=== PATIENT | female | born 1970 | race Two or more races ===

== ENCOUNTER 2022-04-13 17:30 | Emergency (ER) | payer BC, OTHER ==
[~2022-04-13] VITALS: Ht 167.6 cm; Wt 86.2 kg
[2022-04-13 19:49] LABS: Eosinophils # (auto) 0.1 10 ^3/uL (0-0.8); Neutrophils # (auto) 2.7 10 ^3/uL (1.6-8.6)
[2022-04-13 19:51] LABS: Albumin 3.4 g/dL (3.4-5.0); Basophils # (auto) 0 10 ^3/uL (0-0.2); Basophils % (auto) 0.8 % (0.0-2.0); Calcium 9.7 mg/dL (8.5-10.1); Hematocrit 30.4 % (36.0-46.0); Lymphocytes # (auto) 1.4 10 ^3/uL (0.4-5.4); Lymphocytes % (auto) 28.7 % (10.0-50.0); Mean Corpuscular Hemoglobin 20.2 pg (28.0-32.0); Mean Corpuscular Hgb Conc. 29.6 g/dL (32.0-36.0); Mean Corpuscular Volume 68.2 fL (80.0-100.0); Monocytes # (auto) 0.6 10 ^3/uL (0-1.3); Neutrophils % (auto) 56.5 % (37.0-80.0); Nucleated Red Blood Cells % 0.3 %; Potassium 3.7 mmol/L (3.5-5.1); Red Blood Cells 4.45 10^6/uL (4.0-5.20); White Blood Cell 4.8 10^3/uL (4.4-10.8)
[2022-04-13 19:56] LABS: Bilirubin, Total 0.4 mg/dL (0.2-1.0); Total Protein 7.5 g/dL (6.4-8.2)
[2022-04-13 20:01] LABS: Red Cell Distribution Width 21.2 % (11.8-14.3)
[2022-04-13] MEDS ORDERED: ACET1CAP14 PO (20:43)
[2022-04-13] MEDS ORDERED: ACETAMINOPHEN 500 MG TAB PO ONE (20:45)
[2022-04-13] MEDS ORDERED: CEPH-510 PO (21:48)
[2022-04-13 22:40] VITALS: BP 135/86
== END 2022-04-13 22:09 | disposition home or self-care (01) ==
LOC: ER 17:30
DX: D25.9 Leiomyoma of uterus, unspecified (principal); D64.9 Anemia, unspecified; Z79.899 Other long term (current) drug therapy
CPT/HCPCS: 36415; 76856; 80053; 85025